=== PATIENT | male | born 1955 | race Asian ===

== ENCOUNTER 2018-01-10 20:37 | Emergency (ER) | payer OTHER ==
[~2018-01-10] VITALS: Ht 172.7 cm; Wt 71.7 kg
[2018-01-10 20:40] VITALS: BP 155/85
--- NOTE | 2018-01-10 20:45 | NUR ---
[facility]
--- NOTE | 2018-01-10 22:30 | NUR ---
PT AMBULATED TO ROOM 1
--- NOTE | 2018-01-10 22:35 | NUR ---
C/O GENERALIZED WEAKNESS AND DIZZINESS, ONE EPISODE TWO WEEKS AGO. NAD NOTED, NEGATIVE EXAM. DENIES PMH/RX/OTC PT DENIES N/V/D; SKIN IS INTACT, PINK/WARM/DRY; AAOX4, PERRL, WITH EVEN AND STEADY GAIT; LUNGS CLEAR BL, BREATHING UNLABORED; HR EVEN AND REGULAR, BL PERIPHERAL PULSES PRESENT; BS ACTIVE X4, NO TENDERNESS TO PALPATION, NO HEPATOSPLENOMEGALLY PALPATED, RESONANT TO PERCUSSION; PT DENIES ANY FEVER, CP, SOB, OR COUGH AT THIS TIME; PT STATES 0/10 PAIN AT THIS TIME; VSS; PATIENT POSITIONED FOR COMFORT; HOB ELEVATED; BEDRAILS UP X2; BED DOWN.
--- NOTE | 2018-01-10 22:47 | NUR ---
PT FREIDA ORTHOSTATIC VS PROCEDURE, EDMD MADE AWARE.
[2018-01-10 23:51] LABS: APPEARANCE,URINE CLEAR (CLEAR); BILIRUBIN,URINE NEGATIVE (NEGATIVE); BLOOD, URINE NEGATIVE (NEGATIVE); COLOR,URINE YELLOW (YELLOW); LEUKOCYTE ESTERASE ,URINE NEGATIVE (NEGATIVE); NITRITE, URINE NEGATIVE (NEGATIVE); UGLUCOSE NEGATIVE (NEGATIVE)
[2018-01-10 23:57] LABS: BASOPHILS # (AUTO) 0.1 K/uL (0.00-0.22); BASOPHILS % (AUTO) 0.8 % (0.0-2.0); EOSINOPHILS # (AUTO) 0.1 K/uL (0-0.4); HEMOGLOBIN 15.1 g/dL (12.0-18.0); LYMPHOCYTES # (AUTO) 2.1 K/uL (2.0-11.5); LYMPHOCYTES % (AUTO) 28.9 % (20.5-51.1); MEAN CORPUSCULAR HEMOGLOBIN 32 pg (27-31); MEAN CORPUSCULAR HGB CONC 34 g/dL (33-37); MEAN CORPUSCULAR VOLUME 93.6 fL (80-94); MONOCYTES # (AUTO) 0.4 K/uL (0.8-1.0); MONOCYTES % (AUTO) 5.2 % (1.7-9.3); NEUTROPHILS # (AUTO) 4.6 K/uL (1.8-7.7); NEUTROPHILS % (AUTO) 64.1 % (42.2-75.2); PLATELET COUNT (AUTO) 147 K/uL (140-450); RED BLOOD CELL COUNT(AUTO) 4.81 MIL/uL (4.20-6.10); RED CELL DISTRIBUTION WIDTH 13.1 % (11.6-13.7); WHITE BLOOD COUNT (AUTO) 7.2 K/uL (4.8-10.8)
--- NOTE | 2018-01-10 23:59 | NUR ---
AWAITING D/C PAPERWORK FROM
[2018-01-11 00:03] LABS: ALBUMIN 4.2 g/dL (3.4-5.0); ANION GAP 11.6 (8-16); CARBON DIOXIDE 29.1 mmol/L (21-32); CREATININE 1.2 mg/dL (0.7-1.3); POTASSIUM 3.7 mmol/L (3.5-5.1); TOTAL BILIRUBIN 0.4 mg/dL (0.0-1.0)
[2018-01-11 00:39] VITALS: BP 142/75
--- NOTE | 2018-01-11 00:40 | NUR ---
Patient discharged with v/s stable. Written and verbal after care instructions given and explained. Patient alert, oriented and verbalized understanding of instructions. Ambulatory with steady gait. All questions addressed prior to discharge. ID band removed. Patient advised to follow up with PMD. Rx of METFRORMIN 500MG, MECLIZINE 25MG given. Patient educated on indication of medication including possible reaction and side effects. Opportunity to ask questions provided and answered.
== END 2018-01-11 00:40 | disposition home or self-care (01) ==
LOC: MED 20:37
DX: E11.65 Type 2 diabetes mellitus with hyperglycemia (principal)
CPT/HCPCS: 36415; 80053; 81003; 83036; 85025; 93005; 99285

== ENCOUNTER 2019-02-08 18:49 | Emergency (ER) | payer OTHER ==
[~2019-02-08] VITALS: Ht 167.6 cm; Wt 69.2 kg
[2019-02-08 18:58] VITALS: BP 133/77
--- NOTE | 2019-02-08 19:16 | NUR ---
PT AMBULATED TO ER BED 07
--- NOTE | 2019-02-08 19:18 | NUR ---
X RAY AT BEDSIDE
[2019-02-08 19:34] LABS: BASOPHILS % (AUTO) 0.4 % (0.0-2.0); EOSINOPHILS # (AUTO) 0.2 K/uL (0-0.4); HEMATOCRIT 42.2 % (36-52); HEMOGLOBIN 14.1 g/dL (12.0-18.0); LYMPHOCYTES # (AUTO) 2.5 K/uL (2.0-11.5); LYMPHOCYTES % (AUTO) 35.9 % (20.5-51.1); MEAN CORPUSCULAR HEMOGLOBIN 31 pg (27-31); MEAN CORPUSCULAR HGB CONC 34 g/dL (33-37); MEAN CORPUSCULAR VOLUME 93.3 fL (80-94); MONOCYTES # (AUTO) 0.5 K/uL (0.8-1.0); MONOCYTES % (AUTO) 6.9 % (1.7-9.3); NEUTROPHILS # (AUTO) 3.7 K/uL (1.8-7.7); NEUTROPHILS % (AUTO) 53.8 % (42.2-75.2); PLATELET COUNT (AUTO) 163 K/uL (140-450); RED BLOOD CELL COUNT(AUTO) 4.52 MIL/uL (4.20-6.10)
--- NOTE | 2019-02-08 19:42 | NUR ---
PT CAME TO ER C/O OF GENERALIZED WEAKNESS. PT ALERT AND ORIENTED X4. VSS. PT DENIES PAIN. NO N/V/D AND NO CHANGES IN APPETITE. NO MED HX. PER PT HE STATES HE IS WORRIED ABOUT HIS LIVER. SAFETY MEASURES IN PLACE. ERMD AT BEDSIDE.
[2019-02-08 19:49] LABS: ANION GAP 8.2 (8-16); CARBON DIOXIDE 29.5 mmol/L (21-32); CREATININE 1.1 mg/dL (0.7-1.3); POTASSIUM 3.7 mmol/L (3.5-5.1)
[2019-02-08 19:54] LABS: ALBUMIN 3.7 g/dL (3.4-5.0); TOTAL BILIRUBIN 0.3 mg/dL (0.0-1.0)
[2019-02-08 20:28] VITALS: BP 133/77
--- NOTE | 2019-02-08 20:28 | NUR ---
Patient discharged with v/s stable. Written and verbal after care instructions given and explained. PAIN LEVEL DECREASED TO 2/10 PRIOR TO D/C Patient alert, oriented and verbalized understanding of instructions. Ambulatory with steady gait. All questions addressed prior to discharge. ID band removed. Patient advised to follow up with PMD. Opportunity to ask questions provided and answered.
== END 2019-02-08 20:28 | disposition home or self-care (01) ==
LOC: MED 18:49
DX: R53.1 Weakness (principal); R53.83 Other fatigue; R11.2 Nausea with vomiting, unspecified
CPT/HCPCS: 36415; 71045; 80053; 81002; 84484; 85025; 99284; Q0092

== ENCOUNTER 2020-02-16 12:26 | Emergency (ER) | payer OTHER ==
[~2020-02-16] VITALS: Ht 172.7 cm; Wt 71.7 kg
[2020-02-16 12:29] VITALS: BP 136/82
--- NOTE | 2020-02-16 12:40 | NUR ---
PT AMB TO BED 8
--- NOTE | 2020-02-16 12:48 | NUR ---
Dr. Valenzuela is evaluating the patient at bedside.
--- NOTE | 2020-02-16 12:48 | NUR ---
65 Y/O M C/C LEFT UPPER CHEST PAIN, STABBING SENSATION, 5/10 PAIN, NON RADIATING. PT PRESENTS IN NO RESPIRATORY DISTRESS, EUPNIC, VSS. PLACED IN FULL FOWLERS POSITION. NKA. HX DM. RX DOES NOT RECALL DM RX. NO SX. NO NVD. SIDE RAIL X1.
[2020-02-16] MEDS ORDERED: ASPIRIN 81 MG TAB.CHEW PO ONE (12:50)
--- NOTE | 2020-02-16 12:50 | NUR ---
ERMD AT BEDSIDE
--- NOTE | 2020-02-16 13:05 | NUR ---
RADIOLOGY AT BEDSIDE
[2020-02-16 13:45] LABS: BASOPHILS % (AUTO) 0.3 % (0.0-2.0); EOSINOPHILS # (AUTO) 0.1 K/uL (0-0.4); EOSINOPHILS % (AUTO) 1.7 % (0.0-4.0); HEMATOCRIT 43.2 % (36-52); HEMOGLOBIN 14.1 g/dL (12.0-18.0); LYMPHOCYTES # (AUTO) 1.8 K/uL (2.0-11.5); LYMPHOCYTES % (AUTO) 24.5 % (20.5-51.1); MEAN CORPUSCULAR HEMOGLOBIN 31 pg (27-31); MEAN CORPUSCULAR HGB CONC 33 g/dL (33-37); MEAN CORPUSCULAR VOLUME 96.2 fL (80-94); MONOCYTES # (AUTO) 0.7 K/uL (0.8-1.0); MONOCYTES % (AUTO) 9.7 % (1.7-9.3); NEUTROPHILS # (AUTO) 4.6 K/uL (1.8-7.7); NEUTROPHILS % (AUTO) 63.8 % (42.2-75.2); PLATELET COUNT (AUTO) 167 K/uL (140-450); RED BLOOD CELL COUNT(AUTO) 4.49 MIL/uL (4.20-6.10); RED CELL DISTRIBUTION WIDTH 13.6 % (11.6-13.7); WHITE BLOOD COUNT (AUTO) 7.2 K/uL (4.8-10.8)
[2020-02-16 14:12] LABS: ALBUMIN 3.4 g/dL (3.4-5.0); ANION GAP 14.2 (8-16); CARBON DIOXIDE 26.8 mmol/L (21-32); TOTAL BILIRUBIN 0.3 mg/dL (0.0-1.0)
--- NOTE | 2020-02-16 14:12 | NUR ---
PT RESTING IN BED, SIDE RAIL X1
[2020-02-16 14:43] VITALS: BP 136/82
--- NOTE | 2020-02-16 14:43 | NUR ---
Patient discharged with v/s stable. Written and verbal after care instructions given and explained. Patient alert, oriented and verbalized understanding of instructions. Ambulatory with steady gait. All questions addressed prior to discharge. ID band removed. Patient advised to follow up with PMD.
== END 2020-02-16 14:43 | disposition home or self-care (01) ==
LOC: MED 12:26
DX: R07.89 Other chest pain (principal); R51 Headache; E11.9 Type 2 diabetes mellitus without complications
CPT/HCPCS: 36415; 71045; 80053; 81002; 83880; 84484; 85025; 93005; 99285; Q0092

== ENCOUNTER 2020-02-24 10:04 | Emergency (ER) | payer OTHER ==
[~2020-02-24] VITALS: Ht 172.7 cm; Wt 70.3 kg
[2020-02-24 10:13] VITALS: BP 142/70
--- NOTE | 2020-02-24 10:35 | NUR ---
Note nahomyregis in EDM - 02/24/20 at 1116 by [email or web address] C/O FATIGUE X1 WEEK. DENIES CHEST PAIN, SOB, FEVER. PT WAS SEEN HERE 1 WK AGO FOR CHEST PAIN AND STATES HE WAS NOT TESTED FOR COVID THEN AND WOULD LIKE TO BE NOW. NO MEDICAL HX.
--- NOTE | 2020-02-24 10:35 | NUR ---
C/O FATIGUE X1 WEEK. DENIES CHEST PAIN, SOB, FEVER. PT WAS SEEN HERE 1 WK AGO FOR CHEST PAIN AND STATES HE WAS NOT TESTED FOR COVID THEN AND WOULD LIKE TO BE NOW. NO MEDICAL HX. PT IN TENT.
--- NOTE | 2020-02-24 11:10 | NUR ---
COVID SWAB COLLECTED AND WALKED TO LAB
--- NOTE | 2020-02-24 11:10 | NUR ---
ERMD EVALUATING PT
[2020-02-24] MEDS ORDERED: BLOOD GLUCOSE MONITORING 1 DEV DEV FS ONE (11:15)
[2020-02-24 11:31] VITALS: BP 142/70
--- NOTE | 2020-02-24 11:32 | NUR ---
Patient discharged with v/s stable. Written and verbal after care instructions given and explained. Patient verbalized understanding. Ambulatory with steady gait. All questions addressed prior to discharge. Advised to follow up with PMD.
== END 2020-02-24 11:32 | disposition home or self-care (01) ==
LOC: MED 10:04
DX: R53.83 Other fatigue (principal); Z20.828 Contact with and (suspected) exposure to other viral communicable diseases; E11.9 Type 2 diabetes mellitus without complications
CPT/HCPCS: 99283; U0003

== ENCOUNTER 2020-04-01 06:37 | Day surgery (SDC) | payer OTHER ==
[~2020-04-01] VITALS: Ht 167.6 cm; Wt 68.0 kg
[2020-04-01] MEDS ORDERED: MIDAZOLAM 2 MG/2 ML VIAL ONE (08:50)
[2020-04-01] MEDS ORDERED: MIDAZOLAM 2 MG/2 ML VIAL IVP ONE (09:05)
== END 2020-04-01 09:30 | disposition home or self-care (01) ==
LOC: MDS 06:37 → MFCC 06:43 → MDS 09:30
PROVIDERS: ATTEND Internal Medicine Gastroenterology
DX: R14.0 Abdominal distension (gaseous) (principal); K22.70 Barrett's esophagus without dysplasia; K29.70 Gastritis, unspecified, without bleeding; K31.89 Other diseases of stomach and duodenum; K21.9 Gastro-esophageal reflux disease without esophagitis; R14.2 Eructation; Z79.899 Other long term (current) drug therapy
CPT/HCPCS: 36415; 43239; 86677; J2250

== ENCOUNTER 2020-11-19 16:06 | Emergency (ER) | payer OTHER ==
[~2020-11-19] VITALS: Ht 170.2 cm; Wt 69.4 kg
[2020-11-19 16:12] VITALS: BP 143/98
[2020-11-19] MEDS ORDERED: BACITRACIN OINT 500 UNITS/GM PKT TP ONE ×3 (17:45)
[2020-11-19 17:49] LABS: BASOPHILS % (AUTO) 0.2 % (0.0-2.0); EOSINOPHILS # (AUTO) 0.1 K/uL (0-0.4); EOSINOPHILS % (AUTO) 1.4 % (0.0-4.0); HEMATOCRIT 42.4 % (36-52); HEMOGLOBIN 14.1 g/dL (12.0-18.0); LYMPHOCYTES # (AUTO) 1.5 K/uL (2.0-11.5); LYMPHOCYTES % (AUTO) 18.4 % (20.5-51.1); MEAN CORPUSCULAR HEMOGLOBIN 32 pg (27-31); MEAN CORPUSCULAR HGB CONC 33 g/dL (33-37); MEAN CORPUSCULAR VOLUME 94.7 fL (80-94); MONOCYTES # (AUTO) 0.6 K/uL (0.8-1.0); MONOCYTES % (AUTO) 7.7 % (1.7-9.3); NEUTROPHILS # (AUTO) 5.9 K/uL (1.8-7.7); NEUTROPHILS % (AUTO) 72.3 % (42.2-75.2); PLATELET COUNT (AUTO) 138 K/uL (140-450); RED BLOOD CELL COUNT(AUTO) 4.48 MIL/uL (4.20-6.10); RED CELL DISTRIBUTION WIDTH 13.2 % (11.6-13.7); WHITE BLOOD COUNT (AUTO) 8.1 K/uL (4.8-10.8)
[2020-11-19 18:02] LABS: ALBUMIN 3.5 g/dL (3.4-5.0); ANION GAP 8.6 (8-16); CARBON DIOXIDE 30.3 mmol/L (21-32); POTASSIUM 3.9 mmol/L (3.5-5.1); TOTAL BILIRUBIN 0.4 mg/dL (0.0-1.0)
[2020-11-19] MEDS ORDERED: NAPR-1560 PO (18:44)
[2020-11-19] MEDS ORDERED: MAG-27 PO (18:44)
[2020-11-19] MEDS ORDERED: BACO TP (18:44)
[2020-11-19 19:11] VITALS: BP 143/98
[2020-11-20] MEDS ORDERED: BACITRACIN ZINC/POLYMYXIN B OINT 30 GM TUBE TP SCH (09:00)
== END 2020-11-19 19:12 | disposition home or self-care (01) ==
LOC: MED 16:06
DX: T24.031A Burn of unspecified degree of right lower leg, initial encounter (principal); S39.012A Strain of muscle, fascia and tendon of lower back, initial encounter; K27.9 Peptic ulcer, site unspecified, unspecified as acute or chronic, without hemorrhage or perforation; E11.9 Type 2 diabetes mellitus without complications; X11.8XXA Contact with other hot tap-water, initial encounter; Y93.89 Activity, other specified; Y92.89 Other specified places as the place of occurrence of the external cause; Y99.8 Other external cause status
CPT/HCPCS: 16020; 36415; 80053; 83690; 85025; 99284

== ENCOUNTER 2020-12-19 21:30 | Emergency (ER) | payer OTHER ==
[~2020-12-19] VITALS: Ht 172.7 cm; Wt 68.0 kg
[~2020-12-19 21:30] MED LIST: BACO TP; MAG-27 PO; NAPR-1560 PO
[2020-12-19 21:35] VITALS: BP 134/73
--- NOTE | 2020-12-19 21:35 | NUR ---
TO BED AMBULATORY
--- NOTE | 2020-12-19 21:41 | NUR ---
William ivan in [facility] - 12/20/20 at 0135 by [email or web address] AMBULATED TO ER BED 3
--- NOTE | 2020-12-19 22:00 | NUR ---
65/M BIB SELF C/O CONSTATNT SHARP, BURNING, NON-RADIATING CHEST PAIN, DIARRHEA AND COUGH SINCE YESTERDAY. PT DENIES ANY FEVER, CHILLS, PAINFUL URINATION, SOB. DENIES ANY PMH NKA
[2020-12-19] MEDS ORDERED: HYDROcodone/APAP 5/325 MG 1 TAB TAB PO ONE (22:10)
[2020-12-19] MEDS ORDERED: ONDANSETRON 4 MG ODT PO ONE (22:10)
--- NOTE | 2020-12-19 22:10 | NUR ---
EKG PERFORMED AT BEDSIDE. EKG READS SINUS TACHYCARDIA @ 103
--- NOTE | 2020-12-19 22:24 | NUR ---
PAPER WINDER AT BEDSIDE
[2020-12-19 22:32] LABS: BASOPHILS % (AUTO) 0.2 % (0.0-2.0); HEMATOCRIT 48.5 % (36-52); HEMOGLOBIN 16.3 g/dL (12.0-18.0); LYMPHOCYTES # (AUTO) 0.5 K/uL (2.0-11.5); LYMPHOCYTES % (AUTO) 3.4 % (20.5-51.1); MEAN CORPUSCULAR HEMOGLOBIN 32 pg (27-31); MEAN CORPUSCULAR HGB CONC 34 g/dL (33-37); MEAN CORPUSCULAR VOLUME 94.1 fL (80-94); MONOCYTES # (AUTO) 0.4 K/uL (0.8-1.0); MONOCYTES % (AUTO) 2.7 % (1.7-9.3); NEUTROPHILS # (AUTO) 14.8 K/uL (1.8-7.7); NEUTROPHILS % (AUTO) 93.7 % (42.2-75.2); PLATELET COUNT (AUTO) 160 K/uL (140-450); RED BLOOD CELL COUNT(AUTO) 5.15 MIL/uL (4.20-6.10); RED CELL DISTRIBUTION WIDTH 13.3 % (11.6-13.7); WHITE BLOOD COUNT (AUTO) 15.8 K/uL (4.8-10.8)
--- NOTE | 2020-12-19 22:46 | NUR ---
ULTRASOUND AT BEDSIDE.
[2020-12-19 22:59] LABS: POTASSIUM 3.6 mmol/L (3.5-5.1)
[2020-12-19 23:00] LABS: ALBUMIN 3.8 g/dL (3.4-5.0); ANION GAP 9.6 (8-16); CREATININE 1.2 mg/dL (0.6-1.3); TOTAL BILIRUBIN 0.7 mg/dL (0.0-1.0)
[2020-12-20] MEDS ORDERED: FAMO-90 PO (00:57)
[2020-12-20 01:30] VITALS: BP 134/73
== END 2020-12-19 23:50 | disposition home or self-care (01) ==
LOC: MED 21:30
DX: R10.13 Epigastric pain (principal); R11.10 Vomiting, unspecified; E11.9 Type 2 diabetes mellitus without complications; Z79.899 Other long term (current) drug therapy
CPT/HCPCS: 36415; 71045; 76705; 80053; 83690; 84484; 85025; 93005; 99285; Q0162